=== PATIENT | female | born 1970 | race Caucasian/White ===

== ENCOUNTER 2019-02-27 18:12 | Emergency (ER) | payer OTHER, MEDICAID ==
[~2019-02-27] VITALS: Ht 162.6 cm; Wt 67.1 kg
[~2019-02-27 18:12] MED LIST: FLEXERIL; PHENERGAN; VICODIN
[2019-02-27 18:49] LABS: INFLUENZA A ANTIGEN Negative (Negative); INFLUENZA B ANTIGEN Negative (Negative)
[2019-02-27] MEDS ORDERED: MEDROLDOSEPACK PO (19:48)
[2019-02-27] MEDS ORDERED: ONDANSETRON HCL4 M2 PO (19:48)
[2019-02-27] MEDS ORDERED: TAMIFLU75 MG PO (19:54)
[2019-02-27 20:02] VITALS: BP 151/89
== END 2019-02-27 20:03 | disposition home or self-care (01) ==
LOC: M.ERS 18:12
PROVIDERS: Family Medicine
DX: J06.9 Acute upper respiratory infection, unspecified (principal); R11.2 Nausea with vomiting, unspecified; Z20.828 Contact with and (suspected) exposure to other viral communicable diseases; Z90.49 Acquired absence of other specified parts of digestive tract; Z88.5 Allergy status to narcotic agent; Z88.1 Allergy status to other antibiotic agents

== ENCOUNTER 2019-11-15 19:02 | Emergency (ER) | payer OTHER, MEDICAID ==
[~2019-11-15] VITALS: Ht 162.6 cm; Wt 58.1 kg
[~2019-11-15 19:02] MED LIST changes: +MEDROLDOSEPACK PO; +ONDANSETRON HCL4 M2 PO; +TAMIFLU75 MG PO
[2019-11-15] MEDS ORDERED: PROMETHAZI6.25 MG/5 PO (19:19)
[2019-11-15 20:00] LABS: INFLUENZA A ANTIGEN Negative (Negative); INFLUENZA B ANTIGEN Negative (Negative)
[2019-11-15 20:35] LABS: ABSOLUTE BASOPHILS 0.1 thou/uL (0.0-0.2); ABSOLUTE EOSINOPHILS 0.2 thou/uL (0.0-0.7); ABSOLUTE LYMPHOCYTES 1.8 thou/uL (0.8-5.3); ABSOLUTE NEUTROPHILS 11.7 thou/uL (1.6-8.1); BASOPHILS 0.5 %; EOSINOPHILS 1.3 %; HEMATOCRIT 42.6 % (37.0-47.0); HEMOGLOBIN 14.6 gm/dL (12.0-15.0); LYMPHOCYTES 12.1 %; MCH 33.5 pg (26.0-34.0); MCHC 34.3 g/dL (28.0-37.0); MCV 97.5 fL (80.0-100.0); MONOCYTES 6.8 %; MPV 6.3 fl. (7.2-11.1); NUCLEATED RBCS 0 /100WBC; PLATELET COUNT* 273 thou/uL (150-400); POLYS 79.3 %; RBC 4.37 mil/uL (4.20-5.00); RDW-CV 14.1 % (10.5-14.5); WBC 14.8 thou/uL (4.0-11.0)
[2019-11-15 20:51] LABS: CALCIUM 8.5 mg/dL (8.5-10.1); CREATININE 0.9 mg/dL (0.6-1.3); POTASSIUM 3.9 mmol/L (3.5-5.1)
[2019-11-15 20:55] LABS: ALBUMIN 3.4 g/dL (3.4-5.0); TOTAL BILIRUBIN 0.3 mg/dL (<0.1-1.0); TOTAL PROTEIN 6.8 g/dL (6.4-8.2)
[2019-11-15 21:34] LABS: URINE BILIRUBIN NEGATIVE (Negative); URINE BLOOD TRACE (Negative); URINE CLARITY CLEAR; URINE COLOR YELLOW; URINE GLUCOSE-RANDOM NEGATIVE (Negative); URINE KETONES NEGATIVE (Negative); URINE LEUKOCYTES-REFLEX NEGATIVE (Negative); URINE NITRITE-REFLEX NEGATIVE (Negative); URINE PROTEIN NEGATIVE (Negative); URINE UROBILINOGEN 0.2 E.U./dl (0.2-1.0)
[2019-11-15] MEDS ORDERED: HYDROCODON-ACE1 EAC7 PO (23:18)
[2019-11-15] MEDS ORDERED: BIAXIN 500 MG500 M2 PO (23:18)
[2019-11-15] MEDS ORDERED: Magic Mouthwash SWISH&SPIT (23:18)
[2019-11-15 23:35] VITALS: BP 123/78
--- NOTE | 2019-11-16 16:09 | EKG ---
[place] [address] ELECTROCARDIOGRAM REPORT Name: MATEOHIGINIOLuisa MCKENZIE Room: [facility]#: [id number] Admission: 11/15/19 Attend Phys: Discharge: 11/15/19 Date of : 70 Date of Service: 11/15/192010 Report #: [id number] THIS REPORT FOR: //name// [facility] ED Test Date: 2019-11-15 Test Time: 20:11:40 Pat Name: HIGINIO GALINDO Department: Room: Gender: Elementary School Music Teacher: Ervin : 1970 Requested By: Cathryn Kidd Order Number: [id number] MD: Beto Katz Measurements Intervals [place] Rate: 111 P: 38 MO: 122 QRS: 3 QRSD: 95 T: 31 QT: 321 QTc: 436 Interpretive Statements Sinus tachycardia Probable left atrial enlargement Minor IVCD of the right type Low voltage, precordial leads No previous ECG available for comparison Electronically Signed On 11-16-2019 16:08:48 CDT by Beto Katz [email or web address] <ELECTRONICALLY SIGNED> By: Beto Katz MD, [facility] 11/16/19 1608 10 10 Beto Katz MD, [facility] /EPI
== END 2019-11-15 23:38 | disposition home or self-care (01) ==
LOC: M.ERS 19:02
PROVIDERS: Nurse Practitioner Family; Personal Emergency Response Attendant
DX: J02.0 Streptococcal pharyngitis (principal); R19.7 Diarrhea, unspecified; R06.02 Shortness of breath; R11.2 Nausea with vomiting, unspecified; Z20.828 Contact with and (suspected) exposure to other viral communicable diseases; Z90.49 Acquired absence of other specified parts of digestive tract; Z79.899 Other long term (current) drug therapy; Z88.1 Allergy status to other antibiotic agents; Z88.5 Allergy status to narcotic agent

== ENCOUNTER 2020-02-07 18:53 | Emergency (ER) | payer OTHER, MEDICAID ==
[~2020-02-07] VITALS: Ht 162.6 cm; Wt 59.0 kg
[~2020-02-07 18:53] MED LIST changes: +BIAXIN 500 MG500 M2 PO; +HYDROCODON-ACE1 EAC7 PO; +Magic Mouthwash SWISH&SPIT; +PROMETHAZI6.25 MG/5 PO
[2020-02-07 19:11] LABS: URINE BILIRUBIN NEGATIVE (Negative); URINE BLOOD 1+ (Negative); URINE COLOR YELLOW; URINE GLUCOSE-RANDOM NEGATIVE (Negative); URINE KETONES NEGATIVE (Negative); URINE LEUKOCYTES-REFLEX 1+ (Negative); URINE PROTEIN TRACE (Negative); URINE UROBILINOGEN 0.2 E.U./dl (0.2-1.0)
[2020-02-07 19:12] LABS: URINE CLARITY HAZY; URINE NITRITE-REFLEX POSITIVE (Negative)
[2020-02-07 19:25] LABS: BACTERIA-REFLEX >30 Many /HPF (None Seen); CASTS None Seen /LPF (None Seen); CRYSTALS None Seen /LPF (None Seen); SQUAMOUS 4-10 Moderate /LPF (0-3); URINE RBC 3-10 Few /HPF (0-2); URINE WBC-REFLEX >25 Many /HPF (0-5)
[2020-02-07 19:29] LABS: ABSOLUTE LYMPHOCYTES 1.6 thou/uL (0.8-5.3); ABSOLUTE MONOCYTES 0.8 thou/uL (0.0-1.2); ABSOLUTE NEUTROPHILS 8.7 thou/uL (1.6-8.1); BASOPHILS 0.4 %; EOSINOPHILS 0.4 %; HEMATOCRIT 45.3 % (37.0-47.0); HEMOGLOBIN 15.2 gm/dL (12.0-15.0); LYMPHOCYTES 14.4 %; MCH 33.3 pg (26.0-34.0); MCHC 33.5 g/dL (28.0-37.0); MCV 99.3 fL (80.0-100.0); MONOCYTES 7.1 %; MPV 6.7 fl. (7.2-11.1); NUCLEATED RBCS 0 /100WBC; PLATELET COUNT* 306 thou/uL (150-400); POLYS 77.7 %; RBC 4.56 mil/uL (4.20-5.00); RDW-CV 13.9 % (10.5-14.5); WBC 11.1 thou/uL (4.0-11.0)
[2020-02-07 19:34] LABS: CALCIUM 8.4 mg/dL (8.5-10.1); CREATININE 0.7 mg/dL (0.6-1.3); POTASSIUM 3.3 mmol/L (3.5-5.1)
[2020-02-07 19:38] LABS: ALBUMIN 3.7 g/dL (3.4-5.0); TOTAL BILIRUBIN 0.2 mg/dL (<0.1-1.0)
[2020-02-07] MEDS ORDERED: ZOFRAN ODT4 MG PO (21:15)
[2020-02-07] MEDS ORDERED: LEVAQUIN 500 M500 MG PO (21:15)
[2020-02-07] MEDS ORDERED: TORADOL 10 MG T10 MG PO (21:15)
[2020-02-07] MEDS ORDERED: PERCOCET 5-3251 EACH PO (21:58)
[2020-02-07 22:44] VITALS: BP 102/69
== END 2020-02-07 22:48 | disposition home or self-care (01) ==
LOC: M.ERS 18:53
PROVIDERS: Personal Emergency Response Attendant
DX: N12 Tubulo-interstitial nephritis, not specified as acute or chronic (principal); Z88.1 Allergy status to other antibiotic agents; Z88.5 Allergy status to narcotic agent; Z90.49 Acquired absence of other specified parts of digestive tract

== ENCOUNTER 2020-02-23 18:02 | Emergency (ER) | payer OTHER, MEDICAID ==
[~2020-02-23] VITALS: Ht 162.6 cm; Wt 63.5 kg
[~2020-02-23 18:02] MED LIST changes: +LEVAQUIN 500 M500 MG PO; +PERCOCET 5-3251 EACH PO; +TORADOL 10 MG T10 MG PO; +ZOFRAN ODT4 MG PO
[2020-02-23 18:46] LABS: URINE BILIRUBIN NEGATIVE (Negative); URINE BLOOD NEGATIVE (Negative); URINE CLARITY CLEAR; URINE COLOR YELLOW; URINE GLUCOSE-RANDOM NEGATIVE (Negative); URINE KETONES NEGATIVE (Negative); URINE LEUKOCYTES-REFLEX NEGATIVE (Negative); URINE NITRITE-REFLEX NEGATIVE (Negative); URINE PROTEIN NEGATIVE (Negative); URINE SPECIFIC GRAVITY 1.025 (1.005-1.030); URINE UROBILINOGEN 0.2 E.U./dl (0.2-1.0)
[2020-02-23 19:17] LABS: ABSOLUTE BASOPHILS 0.1 thou/uL (0.0-0.2); ABSOLUTE EOSINOPHILS 0.1 thou/uL (0.0-0.7); ABSOLUTE LYMPHOCYTES 2.8 thou/uL (0.8-5.3); ABSOLUTE MONOCYTES 0.6 thou/uL (0.0-1.2); ABSOLUTE NEUTROPHILS 4.7 thou/uL (1.6-8.1); BASOPHILS 0.9 %; EOSINOPHILS 1.3 %; HEMOGLOBIN 14.1 gm/dL (12.0-15.0); LYMPHOCYTES 33.6 %; MCH 32.8 pg (26.0-34.0); MCHC 33.6 g/dL (28.0-37.0); MCV 97.7 fL (80.0-100.0); MONOCYTES 7.3 %; MPV 6.3 fl. (7.2-11.1); NUCLEATED RBCS 0 /100WBC; PLATELET COUNT* 370 thou/uL (150-400); POLYS 56.9 %; RDW-CV 13.6 % (10.5-14.5); WBC 8.2 thou/uL (4.0-11.0)
[2020-02-23 19:26] LABS: CREATININE 0.8 mg/dL (0.6-1.3); POTASSIUM 3.4 mmol/L (3.5-5.1)
[2020-02-23 19:30] LABS: ALBUMIN 3.3 g/dL (3.4-5.0); TOTAL BILIRUBIN 0.1 mg/dL (<0.1-1.0)
[2020-02-23] MEDS ORDERED: BENTYL 20 MG TA20 M1 PO (20:30)
[2020-02-23] MEDS ORDERED: PHENERGAN 25 MG25 M1 PO (20:30)
[2020-02-23] MEDS ORDERED: AUGMENTIN 875-1 EACH PO (20:30)
[2020-02-23] MEDS ORDERED: NORCO 5-325 TA1 EAC2 PO (20:30)
[2020-02-23 20:59] VITALS: BP 156/78
--- NOTE | 2020-02-24 10:43 | EKG ---
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 : 1970 Requested By: Nya Shrestha Order Number: [id number] MD: Mevlin Rose Measurements Intervals [place] Rate: 84 P: 56 RI: 102 QRS: 28 QRSD: 108 T: 57 QT: 394 QTc: 466 Interpretive Statements Sinus rhythm Short RI interval Borderline low voltage, extremity leads RSR' in V1 or V2, right VCD or RVH Compared to ECG 11/15/2019 20:11:40 Sinus tachycardia no longer present Electronically Signed On 02-24-2020 10:43:43 CASE FINISHING MACHINE ADJUSTER by Melvin Rose [email or web address] <ELECTRONICALLY SIGNED> By: Melvin Rose MD, [facility] 02/24/20 1043 02 02 Melvin Rose MD, [facility] /EPI
== END 2020-02-23 21:05 | disposition home or self-care (01) ==
LOC: M.ERS 18:02
PROVIDERS: Nurse Practitioner Family
DX: K52.9 Noninfective gastroenteritis and colitis, unspecified (principal); F17.210 Nicotine dependence, cigarettes, uncomplicated; Z88.1 Allergy status to other antibiotic agents; Z88.5 Allergy status to narcotic agent; Z90.49 Acquired absence of other specified parts of digestive tract

== ENCOUNTER → 2020-05-25 | Outpatient (CLI) | payer OTHER, MEDICAID ==
[~2020-05-25] MED LIST changes: +AUGMENTIN 875-1 EACH PO; +BENTYL 20 MG TA20 M1 PO; +NORCO 5-325 TA1 EAC2 PO; +PHENERGAN 25 MG25 M1 PO
== END ==
LOC: M.ULTRA 12:47
PROVIDERS: ATTEND Nurse Practitioner Family
DX: N92.0 Excessive and frequent menstruation with regular cycle (principal); L72.9 Follicular cyst of the skin and subcutaneous tissue, unspecified

== ENCOUNTER 2020-06-28 18:35 | Emergency (ER) | payer OTHER, MEDICAID ==
[~2020-06-28] VITALS: Ht 162.6 cm; Wt 64.9 kg
[2020-06-28] MEDS ORDERED: TRAZODONE HCL50 MG PO (18:42)
[2020-06-28] MEDS ORDERED: CREON DR 24,001 EACH PO (18:42)
[2020-06-28] MEDS ORDERED: CHLORTHALIDONE25 MG PO (18:42)
[2020-06-28] MEDS ORDERED: PHENERGAN 25 MG25 MG PO (18:43)
[2020-06-28 19:06] LABS: URINE BILIRUBIN NEGATIVE (Negative); URINE BLOOD 1+ (Negative); URINE CLARITY CLEAR; URINE COLOR YELLOW; URINE GLUCOSE-RANDOM NEGATIVE (Negative); URINE KETONES TRACE (Negative); URINE LEUKOCYTES NEGATIVE (Negative); URINE NITRITE POSITIVE (Negative); URINE PROTEIN NEGATIVE (Negative); URINE SPECIFIC GRAVITY >= 1.030 (1.005-1.030); URINE UROBILINOGEN 0.2 E.U./dl (0.2-1.0)
[2020-06-28 19:12] LABS: ABSOLUTE BASOPHILS 0.1 thou/uL (0.0-0.2); ABSOLUTE LYMPHOCYTES 2.3 thou/uL (0.8-5.3); ABSOLUTE NEUTROPHILS 3.6 thou/uL (1.6-8.1); BASOPHILS 0.9 %; EOSINOPHILS 0.7 %; HEMATOCRIT 46.5 % (37.0-47.0); HEMOGLOBIN 15.5 gm/dL (12.0-15.0); LYMPHOCYTES 32.3 %; MCHC 33.4 g/dL (28.0-37.0); MCV 95.9 fL (80.0-100.0); MONOCYTES 14.5 %; MPV 6.6 fl. (7.2-11.1); NUCLEATED RBCS 0 /100WBC; PLATELET COUNT* 345 thou/uL (150-400); POLYS 51.6 %; RBC 4.85 mil/uL (4.20-5.00); RDW-CV 13.7 % (10.5-14.5)
[2020-06-28 19:17] LABS: SQUAMOUS 0-3 Few /LPF (0-3); URINE RBC 3-10 Few /HPF (0-2); URINE WBC 0-5 Rare /HPF (0-5)
[2020-06-28 19:18] LABS: CASTS None Seen /LPF (None Seen); CRYSTALS None Seen /LPF (None Seen)
[2020-06-28 19:38] LABS: ALBUMIN 4.1 g/dL (3.4-5.0); ALKALINE PHOSPHATASE 108 U/L (46-116); ANION GAP 17 mmol/L (7-16); BUN 16 mg/dL (7-18); CALCIUM 9.4 mg/dL (8.5-10.1); CHLORIDE 98 mmol/L (98-107); CK-MB MASS < 0.5 ng/mL (<0.5-3.6); CO2 21 mmol/L (21-32); CREATININE 0.8 mg/dL (0.6-1.3); GLUCOSE 108 mg/dL (70-99); LIPASE 134 U/L (73-393); MAGNESIUM 1.8 mg/dL (1.8-2.4); NT-PRO BRAIN NAT PEPTIDE 30 pg/mL (<300); SGOT 30 U/L (15-37); SGPT 35 U/L (30-65); SODIUM 136 mmol/L (136-145); TOTAL BILIRUBIN 0.2 mg/dL (<0.1-1.0)
[2020-06-28 19:40] LABS: POTASSIUM 2.7 mmol/L (3.5-5.1)
[2020-06-28 20:31] LABS: AMP/METHAMP POSITIVE (Negative); BARBITURATES Negative (Negative); BENZODIAZEPINES Negative (Negative); COCAINE Negative (Negative); METHADONE Negative (Negative); OPIATES Negative (Negative); PCP Negative (Negative); THC POSITIVE (Negative)
[2020-06-28 21:11] LABS: APTT 23.9 Seconds (25.0-31.3); INR 0.9; PROTIME 9.8 Seconds (9.20-11.50)
[2020-06-28] MEDS ORDERED: ZOFRAN ODT4 MG PO (22:11)
[2020-06-28] MEDS ORDERED: POTASSIUM20 PO (22:11)
[2020-06-28] MEDS ORDERED: HYDROCODON-ACE1 EAC8 PO (22:28)
[2020-06-28 22:43] VITALS: BP 128/76
--- NOTE | 2020-06-29 11:00 | EKG ---
[place] [address] ELECTROCARDIOGRAM REPORT Name: MATEOHIGINIOLuisa MCKENZIE Room: [facility]#: [id number] Admission: 06/28/20 Attend Phys: Discharge: 06/28/20 Date of : 70 Date of Service: 06/28/20 1840 Report #: [id number] THIS REPORT FOR: //name// [facility] ED Test Date: 2020-06-28 Test Time: 18:40:22 Pat Name: HIGINIO GALINDO Department: Room: Gender: F Gymnastic Teacher: FAITH : 1970 Requested By: Alan Abreu Order Number: [id number] MD: Melvin Rose Measurements Intervals [place] Rate: 97 P: 43 NC: 105 QRS: 8 QRSD: 109 T: 48 QT: 368 QTc: 468 Interpretive Statements Sinus rhythm Atrial premature complex Short NC interval RSR' in V1 or V2, right VCD or RVH Nonspecific repol abnormality, diffuse leads Compared to ECG 02/23/2020 19:03:06 Atrial premature complex(es) now present Electronically Signed On 06-29-2020 11:00:00 CDT by Melvin Rose [email or web address] <ELECTRONICALLY SIGNED> By: Melvin Rose MD, FACC 06/29/20 1100 1840 1840 Melvin Rose MD, FAC /EPI
== END 2020-06-28 22:44 | disposition home or self-care (01) ==
LOC: M.ERS 18:35
PROVIDERS: Emergency Medicine; Family Medicine; Nurse Practitioner
DX: E87.6 Hypokalemia (principal); Z20.822 Contact with and (suspected) exposure to COVID-19; B34.9 Viral infection, unspecified; F15.10 Other stimulant abuse, uncomplicated; R10.13 Epigastric pain; Z88.1 Allergy status to other antibiotic agents; Z88.5 Allergy status to narcotic agent; Z79.899 Other long term (current) drug therapy; Z90.49 Acquired absence of other specified parts of digestive tract

== ENCOUNTER → 2020-07-24 | Outpatient (CLI) | payer OTHER, MEDICAID ==
[~2020-07-24] MED LIST changes: +BREO ELLIPTA 11 EACH INH; +CHLORTHALIDONE25 MG PO; +CREON DR 24,001 EACH PO; +FLAGYL500 M1 PO; +HYDROCODON-ACE1 EAC8 PO; +LISINOPRIL10 MG PO; +MAXALT10 MG PO; +PHENERGAN 25 MG25 MG PO; +POTASSIUM20 PO; +PROAIR HFA8.5 GM INH; +PROVENTIL INH; +PROZAC20 M1 PO; +TRAZODONE HCL50 MG PO; +ZANTAC 150 MG PO
--- NOTE | 2020-07-25 13:50 | CARDNUC ---
[place] [address] CARDIAC NUCLEAR IMAGING REPORT Name: HIGINIO GALINDO Room: [facility]#: [id number] Admission: 07/24/20 Attend Phys: Logan Valentin, Discharge: Date of : 70 Date of Service: 07/25/20 1350 Report #: [id number] THIS REPORT FOR: cc: SARA LEE NP, KATHERINE J. NP Liston, Michael J. MD [facility] ~ APPROVED REPORT Imaging Protocol: Rest Tc-99m/Stress Tc-99m 1 day Study performed: 07/24/2020 14:26:42 Indication: Chest pain, dyspnea, tachycardia, HTN, ABN EKG. Patient Location: Out-Patient Stress Tech: Court Maki Stress Nurse: Nicolasa Montalvo RN NM Tech:WILFRED Roberts Ht: 5 ft 4 in Wt: 142 lbs BSA: 1.69 m2 BMI: 24.37 Medical History Medical History: Chest pain(sharp), dyspnea, ABN EKG, edema, palpitations, COPD, nausea, fatigue, HX DVT, HX PE, tachycardia, IRBBB, CF carrier, orthopnea, PND, 2.5 L O2 NC HS, pancreatic stent, HX TIA, spinal cord stimulator implant, chronic hypernatremia, cervical nerve/neck surgery with plate, HTN, current smoker-1/2 pack daily. Medications: Chlorthalidone, KCl, Lisinopril. Allergies: Morphine (opioids), Varenicline, cephalexin. Cardiac Risk Factors: Current Smoker, HTN, SOB, tachycardia, IRBBB, ABN EKG. Previous Cardiac Procedures: None Pretest Chest Pain Characteristics: No chest pain Exercise History: Indeterminate Physical Disabilities: None verbalized by patient Meds Held (24 hrs): None Resting Data Rest SPECT myocardial perfusion imaging was performed in supine position 30 minutes following the intravenous injection of 11.8 mCi of Tc-99m Sestamibi. Time of rest injection: 1240 Date: 07/24/2020 The images were gated to evaluate regional wall motion and calculate left [place] [address] CARDIAC NUCLEAR IMAGING REPORT Name: GALINDOHIGINIO Room: [facility]#: [id number] Admission: 07/24/20 Attend Phys: Logan Valentin, Discharge: Date of : 70 Date of Service: 07/25/20 1350 Report #: [id number] Administration Route: IV Administration Site: Left Arm Exercise Stress At peak stress, the patient was injected intravenously with 31.3mCi of Tc-99m Sestamibi. Time of stress injection: 1440 Date: 07/24/2020 Administration Route: IV Administration Site: Left Arm Gated Stress SPECT was performed 30 minutes after stress injection. The images were gated to evaluate regional wall motion and calculate left ventricular ejection fraction. Prone imaging was performed. Stress Test Details Stress Test: Exercise stress testing was performed using a David protocol. HR Max Heart Rate (APMHR): 171 bpm Resting HR: 64 bpm Target HR (85% APMHR): 145 bpm Max HR Achieved: 158 bpm % of APMHR: 92 Recovery HR: 94 bpm BP Resting BP: 143/77 mmHg Max BP: 199/95 mmHg Recovery BP: 159/104 mmHg ECG Resting ECG: Sinus Rhythm Stress ECG: Sinus Tachycardia ST Change: None Arrhythmia: None Recovery ECG: Sinus Rhythm Recovery ST Change: None Recovery Arrhythmia: None Clinical Reason for Termination: Completed protocol, Maximal effort, Target HR achieved. Stress Symptoms: Dyspnea, headache. Exercise duration: 8 min 59 sec Exercise capacity: 10.16 METs Overall Exercise Capacity for Age: Superior The patient tolerated standard David protocol [place] [address] CARDIAC NUCLEAR IMAGING REPORT Name: GALINDOHIGINIOLuisa MCKENZIE Room: [facility]#: [id number] Admission: 07/24/20 Attend Phys: Logan Valentin, Discharge: Date of : 70 Date of Service: 07/25/20 1350 Report #: [id number] significant cardiac symptoms. Nurse Comments A 49 year old female presented for a treadmill nuclear stress test. Treadmill tolerated to end of stage 3, target HR achieved. Recovery unremarkable. Patient was stable and stated she felt good when escorted to Nuclear Medicine for imaging. Exercise capacity - Superior. Stress ECG Conclusion Baseline twelve-lead EKG shows sinus rhythm without significant ST segment abnormality. EKGs obtained during and post exercise show sinus rhythm and sinus tachycardia with no significant ST segment or T wave changes when compared to baseline. There were no stress-induced arrhythmias. Study Quality Study: Good Artifact: No artifact Study Data At rest, the left ventricular ejection fraction was 58%.. Post stress, the left ventricular ejection was 66%.. TID = 0.78. Perfusion Perfusion images show no fixed or reversible defects to suggest infarct or ischemia. Wall Motion Normal left ventricular wall motion. Nuclear Conclusion ECG Findings: negative for ischemia Clinical Findings: negative for ischemia Nuclear Findings: negative for ischemia Exercise Capacity: normal Left Ventricular Function: normal Risk Study: low Perfusion images show no defect to suggest infarct or ischemia. Left ventricular systolic function appears normal on gated studies. This is a low risk study. <Conclusion> Baseline twelve-lead EKG shows sinus rhythm without significant ST segment abnormality. EKGs obtained during [place] [address] CARDIAC NUCLEAR IMAGING REPORT Name: GALINDOHIGINIOLuisa MCKENZIE Room: [facility]#: [id number] Admission: 07/24/20 Attend Phys: Logan Valentin, Discharge: Date of : 70 Date of Service: 07/25/20 1350 Report #: [id number] sinus rhythm and sinus tachycardia with no significant ST segment or T wave changes when compared to baseline. There were no stress-induced arrhythmias. <ELECTRONICALLY SIGNED> By: Bradford Laguna MD, FACC 07/25/20 1350 1350 1350 Bradford Laguna MD, FACC /INF
== END ==
LOC: M.NUC 06-23 12:07
PROVIDERS: ATTEND Internal Medicine
DX: R00.0 Tachycardia, unspecified (principal); R94.31 Abnormal electrocardiogram [ECG] [EKG]; I10 Essential (primary) hypertension; R06.00 Dyspnea, unspecified; R07.9 Chest pain, unspecified

== ENCOUNTER 2021-04-23 15:45 | Emergency (ER) | payer OTHER, MEDICAID ==
[~2021-04-23] VITALS: Ht 162.6 cm; Wt 59.0 kg
[2021-04-23 16:31] LABS: INFLUENZA A ANTIGEN Negative (Negative); INFLUENZA B ANTIGEN Negative (Negative)
[2021-04-23] MEDS ORDERED: ZPAK PO (17:22)
[2021-04-23] MEDS ORDERED: PROAIR HFA8.5 GM INH (17:22)
[2021-04-23] MEDS ORDERED: PREDNISONE 20 M20 M1 PO (17:22)
[2021-04-23 17:29] VITALS: BP 159/89
== END 2021-04-23 17:31 | disposition home or self-care (01) ==
LOC: M.ERS 15:45
PROVIDERS: Physician Assistant Medical
DX: J20.9 Acute bronchitis, unspecified (principal); Z20.822 Contact with and (suspected) exposure to COVID-19; Z88.1 Allergy status to other antibiotic agents; Z88.5 Allergy status to narcotic agent; Z90.49 Acquired absence of other specified parts of digestive tract